=== PATIENT | female | born 1970 | race Caucasian/White ===

== ENCOUNTER → 2017-10-16 | Outpatient (CLI) | payer OTHER ==
--- NOTE | 2017-10-23 08:57 | MM ---
Reason for exam: screening (asymptomatic). Last mammogram was performed 5 years and 7 months ago. History: Patient is postmenopausal. Family history of breast cancer in maternal aunt at age 65 and breast cancer in maternal cousin at age 42. Took hormonal contraceptives for 7 years 5 months beginning at age 34. Physical Findings: A clinical breast exam by your physician is recommended on an annual basis and results should be correlated with mammographic findings. MG 3D Screening Mammo W/Cad Bilateral CC and MLO view(s) were taken. Prior study comparison: March 20, 2012, bilateral digital screening mammo w/CAD. February 23, 2011, bilateral digital screening mammo w/CAD. The breast tissue is heterogeneously dense. This may lower the sensitivity of mammography. There are benign appearing round circumscribed bilateral masses back to 2016. No suspicious abnormality. ASSESSMENT: Benign, BI-RAD 2 RECOMMENDATION: Routine screening mammogram of both breasts in 1 year.
== END | disposition home or self-care (01) ==
LOC: RADMAMWWP 16:52
PROVIDERS: ATTEND Obstetrics & Gynecology
DX: Z12.31 Encounter for screening mammogram for malignant neoplasm of breast (principal)
CPT/HCPCS: 77063; 77067

== ENCOUNTER → 2023-01-10 | Outpatient (CLI) | payer OTHER ==
--- NOTE | 2023-01-10 15:07 | USB ---
Patient History: Menarche at age 9. First Full-Term at age 24. Right ovary removed at age 47. Hysterectomy at age 47. Postmenopausal. Hormonal Contraceptives, starting at age 34 for 7 years, 5 months. Maternal cousin had breast cancer, age 42. Maternal aunt had breast cancer, age 65. Risk Values: Priscilla 5 year model risk: 1.4%. NCI Lifetime model risk: 10.1%. Prior Study Comparison: 02/23/2011 Bilateral Screening Mammogram, [facility]. 03/20/2012 Bilateral Screening Mammogram, [facility]. 10/16/2017 Bilateral Screening Mammogram, [facility]. Findings: The upper outer quadrant of the right breast, the upper inner quadrant of the right breast, the area of palpable concern of the right breast, the axilla of the right breast and the retroareolar of the right breast were scanned. Technique utilized:US breast limited RT Image; Ultrasound imaging of: All 4 quadrants, the retroareolar region and axilla. Hypoechoic lesion at 10:00 1 cm some and nipple appears similar to lesion on prior on 12/06/2021. It should be noted that no location was provided on prior ultrasound. Given stability of at least 2 years is felt to be benign etiology. This may have been present on 2017 exam. Area of palpable abnormality does not demonstrate suspicious mass or finding to correlate. Overall Assessment: Benign, BI-RAD 2 Management: Screening Mammogram of both breasts in 1 year. A clinical breast exam by your physician is recommended on an annual basis and results should be correlated with mammographic findings. This exam should not preclude additional follow-up of suspicious palpable abnormalities. Results were given to the patient verbally at the time of exam. Electronically signed and approved by: Vernon Barron DO
--- NOTE | 2023-01-10 16:04 | P.PN ---
Subjective Progress Note Date: 01/10/23 Lisset is a 52-year-old white female seen in consultation for Paradise Parrish regarding breast pain. She had a bilateral mammogram performed on which was BIRADS 1. She also had limited right breast ultrasound December 06 which revealed a simple cyst at the 10 o'clock position of the right breast measuring 6 x 7 mm in size. She is complaining of pain in her right breast at the 2 oclock region, and pain in her lateral right breast in the axillary area. It is described as tender in nature. It does not spread any place. It lasts several minutes. It is worse with any pressure. She feels thickening of the breast at the 2 o'clock position where it is tender. She has never had any surgery on her breast or breast biopsies. Is not complaining of any nipple discharge or skin changes. She is not complaining of any trauma or infection in the breast. 01-10-23 ultrasound of the right breast 01-10-23 BIRAD 2 She states her breast pain has improved; she is having hot flashes the pain comes and goes with the hot flashes She is not complaining of any new masses or nodules of concern in her breast. Caffeine: coffee daily nicotine: none chocolate: weekly BCP: from 17-40 hormones: none hysterectomy done in 40's left one ovary Family history: mother: thyroid cancer maternal grandmother: pancreatic cancer maternal grandfather: stomach and skin cancer, not melanoma father: prostate cancer, basal cell cancer, SCC cousin maternal: breast cancer maternal aunt: breast cancer Hormonal History: menarche: 11 G4M1P3, age at first : 24, breast fed: yes menopause: hysterectomy in 40's no cancer Surgical History: hysterectomy 1 ovary removed wisdom teeth Medical History: migraine headaches 2 herniated disks in her neck HTN multiple small kidney stones Social History: nicotine: none alcohol: occasional drugs: none - Constitutional Constitutional: Reports sweats - EENT Comment: right eye glucoma Eyes: denies blurred vision, denies pain Ears: bilateral: tinnitus, deny: decreased hearing Ears, nose, mouth and throat: Reports headache, Denies sore throat - Breasts Breasts: bilateral: as per HPI - Cardiovascular Cardiovascular: Denies chest pain, Denies shortness of breath - Respiratory Respiratory: Denies cough - Gastrointestinal Comment: IBS Gastrointestinal: Denies abdominal pain, Denies diarrhea, Denies nausea, Denies vomiting - Genitourinary (Female) Genitourinary: Denies dysuria, Denies hematuria - Menstruation Menstruation: Reports post hysterectomy - Musculoskeletal Musculoskeletal: Reports myalgias - Integumentary Integumentary: Denies pruritus, Denies rash - Neurological Neurological: Denies numbness, Denies weakness - Psychiatric Psychiatric: Denies anxiety, Denies depression - Endocrine Endocrine: Denies fatigue, Denies weight change - Hematologic/Lymphatic Comment: none - Allergic/Immunologic Allergic/Immunologic: Reports seasonal allergies Medications and Allergies Allergies Allergy/AdvReac Type Severity Reaction Status Date / Time Penicillins Allergy Rash/Hives Unverified 10/12/22 15:34 Objective - Constitutional General appearance: Present: cooperative - EENT Eyes: Present: EOMI ENT: Present: hearing grossly normal - Neck Neck: Present: normal ROM - Respiratory Respiratory: bilateral: CTA - Cardiovascular Heart sounds: normal: S1, S2 - Integumentary Integumentary Comment(s): dark nevus lower abdomen Integumentary: Present: normal turgor - Musculoskeletal Musculoskeletal: Present: gait normal - Psychiatric Psychiatric: Present: A&O x's 3, appropriate affect, intact judgment & insight - Additional findings Additional findings: Breast Exam: BRA: 36C inspection: Bilateral grade 2 ptosis Palpation: Right breast: Multi-positional exam fiber glandular changes, no dominant masses or nodules of concern Right axilla: No adenopathy of concern Left breast: Multi-positional exam fibrocystic changes no dominant masses or nodules of concern Left axilla: No adenopathy of concern Assessment and Plan Assessment: Impression: Mastodynia greatest in the right breast improved Fibrocystic breast changes Patient drinks coffee daily Plan: bilateral mammogram in -2023 Patient will attempt lifestyle modifications follow with dermatology Nothing at this time which would warrant interventional biopsy but will await ultrasound at the 12 o'clock position CC: Paradise Parrish
== END | disposition home or self-care (01) ==
LOC: RADUSWWP 14:15
PROVIDERS: ATTEND Surgery
DX: N64.4 Mastodynia (principal); Z78.0 Asymptomatic menopausal state; Z80.3 Family history of malignant neoplasm of breast

== ENCOUNTER → 2023-01-10 | Outpatient (CLI) | payer OTHER ==
[2023-01-10 15:50] VITALS: BP 114/78; PULSE 69; RESP 18; TEMP 97.8
== END ==
LOC: WWCWWP 14:17
PROVIDERS: ATTEND Surgery
DX: Z53.9 Procedure and treatment not carried out, unspecified reason (principal)

== ENCOUNTER → 2023-05-20 | Outpatient (CLI) | payer OTHER ==
--- NOTE | 2023-05-21 20:10 | MM ---
Reason for Exam: Screening (asymptomatic). Last screening mammogram was performed 12 month(s) ago. Patient History: Menarche at age 9. First Full-Term at age 24. Right ovary removed at age 47. Hysterectomy at age 47. Postmenopausal. Hormonal Contraceptives, starting at age 34 for 7 years, 5 months. Maternal cousin had breast cancer, age 42. Maternal aunt had breast cancer, age 65. Risk Values: Priscilla 5 year model risk: 1.4%. NCI Lifetime model risk: 10.1%. Prior Study Comparison: 02/23/2011 Bilateral Screening Mammogram, [facility]. 03/20/2012 Bilateral Screening Mammogram, [facility]. 10/16/2017 Bilateral Screening Mammogram, [facility]. 11/04/2018 Bilateral Screening Mammogram, [facility]. 11/17/2018 Left Diagnostic Ultrasound, [facility]. 05/09/2021 Bilateral Screening Mammogram, [facility]. 12/06/2021 Right US breast RT - 2, [facility]. 05/15/2022 Bilateral Screening Mammogram, [facility]. Tissue Density: The breast tissue is heterogeneously dense. This may lower the sensitivity of mammography. Findings: Analyzed By CAD. Chronic nodularity in the right breast. There is no suspicious group of microcalcifications or new suspicious mass in either breast. Overall Assessment: Benign, BI-RAD 2 Management: Screening Mammogram of both breasts in 1 year. . Patient should continue monthly self-breast exams. A clinical breast exam by your physician is recommended on an annual basis. This exam should not preclude additional follow-up of suspicious palpable abnormalities. Note on Priscilla scores and lifetime risk: 1. A Priscilla score greater than 3% is considered moderate risk. If this is the case, consider specialist referral to assess eligibility for a risk reducing agent. 2. If overall lifetime risk for the development of breast cancer is 20% or higher, the patient may qualify for future screening with alternating mammogram and breast MRI. Electronically signed and approved by: Jose Luis Fitzgerald M.D. Radiologist
== END | disposition home or self-care (01) ==
LOC: RADMAMWWP 10:14
PROVIDERS: ATTEND Surgery
DX: Z12.31 Encounter for screening mammogram for malignant neoplasm of breast (principal); Z80.3 Family history of malignant neoplasm of breast; Z78.0 Asymptomatic menopausal state
CPT/HCPCS: 77063; 77067

== ENCOUNTER → 2023-05-24 | Outpatient (CLI) | payer OTHER ==
--- NOTE | 2023-05-24 12:49 | P.PN ---
Subjective Progress Note Date: 05/24/23 Principal diagnosis: fibrocystic breast changes 01/10/23 Lisset is a 52-year-old white female seen in consultation for Paradise Parrish regarding breast pain. She had a bilateral mammogram performed on which was BIRADS 1. She also had limited right breast ultrasound December 06 which revealed a simple cyst at the 10 o'clock position of the right breast measuring 6 x 7 mm in size. She is complaining of pain in her right breast at the 2 oclock region, and pain in her lateral right breast in the axillary area. It is described as tender in nature. It does not spread any place. It lasts several minutes. It is worse with any pressure. She feels thickening of the breast at the 2 o'clock position where it is tender. She has never had any surgery on her breast or breast biopsies. Is not complaining of any nipple discharge or skin changes. She is not complaining of any trauma or infection in the breast. 01-10-23 ultrasound of the right breast 01-10-23 BIRAD 2 She states her breast pain has improved; she is having hot flashes the pain comes and goes with the hot flashes She is not complaining of any new masses or nodules of concern in her breast. 05-24-23 Bilateral mammogram 05-20-23 BIRAD 2 personally reviewed She is not complaining of any new lumps masses or nodules of concern in either breast, the breast tenderness is only with pressure it has improved; she is drinking decaff coffee Caffeine: coffee daily nicotine: none chocolate: weekly BCP: from 17-40 hormones: none hysterectomy done in 's left one ovary Family history: mother: thyroid cancer maternal grandmother: pancreatic cancer maternal grandfather: stomach and skin cancer, not melanoma father: prostate cancer, basal cell cancer, SCC cousin maternal: breast cancer maternal aunt: breast cancer Hormonal History: menarche: 11 G4M1P3, age at first : 24, breast fed: yes menopause: hysterectomy in 40's no cancer Surgical History: hysterectomy 1 ovary removed wisdom teeth Medical History: migraine headaches 2 herniated disks in her neck HTN multiple small kidney stones Social History: nicotine: none alcohol: occasional drugs: none - Constitutional Constitutional: Reports sweats - EENT Comment: right eye glucoma Eyes: denies blurred vision, denies pain Ears: bilateral: tinnitus, deny: decreased hearing Ears, nose, mouth and throat: Reports headache, Denies sore throat - Breasts Breasts: bilateral: as per HPI - Cardiovascular Cardiovascular: Denies chest pain, Denies shortness of breath - Respiratory Respiratory: Denies cough - Gastrointestinal Comment: IBS Gastrointestinal: Denies abdominal pain, Denies diarrhea, Denies nausea, Denies vomiting - Genitourinary (Female) Genitourinary: Denies dysuria, Denies hematuria - Menstruation Menstruation: Reports post hysterectomy - Musculoskeletal Musculoskeletal: Reports myalgias - Integumentary Integumentary: Denies pruritus, Denies rash - Neurological Neurological: Denies numbness, Denies weakness - Psychiatric Psychiatric: Denies anxiety, Denies depression - Endocrine Endocrine: Denies fatigue, Denies weight change - Hematologic/Lymphatic Comment: none - Allergic/Immunologic Allergic/Immunologic: Reports seasonal allergies Medications and Allergies Allergies Allergy/AdvReac Type Severity Reaction Status Date / Time Penicillins Allergy Rash/Hives Unverified 10/12/22 15:34 Objective - Vital Signs Vital signs: Vital Signs Temp 97.8 F 05/24/23 12:25 Pulse 72 05/24/23 12:25 Resp 16 05/24/23 12:25 BP 127/88 05/24/23 12:25 Pulse Ox 97 05/24/23 12:25 FiO2 Intake & Output 05/23/23 05/24/23 05/24/23 18:59 06:59 18:59 Weight 74.843 kg - Constitutional General appearance: Present: cooperative - EENT Eyes: Present: EOMI ENT: Present: hearing grossly normal - Neck Neck: Present: normal ROM - Respiratory Respiratory: bilateral: CTA - Cardiovascular Heart sounds: normal: S1, S2 - Gastrointestinal General gastrointestinal: Present: soft - Integumentary Integumentary: Present: normal turgor - Musculoskeletal Musculoskeletal: Present: gait normal - Psychiatric Psychiatric: Present: A&O x's 3, appropriate affect, intact judgment & insight - Additional findings Additional findings: Breast Exam: BRA: 36C inspection: Bilateral grade 2 ptosis Palpation: Right breast: Multi-positional exam fibro-glandular changes, no dominant masses or nodules of concern Right axilla: No adenopathy of concern Left breast: Multi-positional exam fibrocystic changes no dominant masses or nodules of concern Left axilla: No adenopathy of concern Assessment and Plan Assessment: Impression: Mastodynia greatest in the right breast improved Fibrocystic breast changes Patient decreased coffee intake Plan: bilateral mammogram in , with appointment at that time Patient will attempt lifestyle modifications follow with dermatology Nothing at this time which would warrant interventional biopsy CC: Paradise Parrish
[2023-05-24 12:52] VITALS: BP 127/88; PULSE 72; RESP 16; TEMP 97.8
== END ==
LOC: WWCWWP 11:40
PROVIDERS: ATTEND Surgery
DX: N60.11 Diffuse cystic mastopathy of right breast (principal); N60.12 Diffuse cystic mastopathy of left breast; N64.4 Mastodynia; I10 Essential (primary) hypertension; Z80.3 Family history of malignant neoplasm of breast; Z87.442 Personal history of urinary calculi; Z88.0 Allergy status to penicillin; Z90.710 Acquired absence of both cervix and uterus; Z90.721 Acquired absence of ovaries, unilateral

== ENCOUNTER 2023-10-04 10:37 | Day surgery (SDC) | payer OTHER ==
[2023-10-01 17:48] VITALS: BMI 31.1
[2023-10-04] MEDS: IV FLUID CONTINUATION 1,000 ML IV ONE (10:49)
[2023-10-04 11:01] VITALS: TEMP 97.3
[2023-10-04] MEDS: LACTATED RINGERS 1,000 ML IV SCH (11:13)
[2023-10-04] MEDS ORDERED: PROPOFOL 10 MG/ML 20 ML VIAL IV ONE (11:32)
--- NOTE | 2023-10-04 11:47 | P.PCN ---
Date of Procedure: 10/04/23 Procedure(s) Performed: BRIEF HISTORY: Patient is a 53-year-old pleasant white female scheduled for an elective colonoscopy as a part of screening for colon cancer. PROCEDURE PERFORMED: Colonoscopy with biopsy. PREOPERATIVE DIAGNOSIS: Screening for colon cancer. IV sedation per Anesthesia. PROCEDURE: After informed consent was obtained, the patient, was brought into the endoscopy unit. IV sedation was administered by Anesthesia under continuous monitoring. Digital rectal examination was normal. Initially the Olympus CF-160 flexible video colonoscope was then inserted in the rectum, gradually advanced into the cecum without any difficulty. Careful examination was performed as the scope was gradually being withdrawn. Ileocecal valve and the appendiceal orifice were visualized and appeared normal. Prep was excellent. Mucosa of the cecum had a 4 mm sessile polyp that was removed by cold biopsy., ascending colon, transverse colon, descending colon, sigmoid colon, and rectum appeared normal. Scattered sigmoid diverticulosis. Retroflexion was performed in the rectum and no lesions were seen. The patient tolerated the procedure well. IMPRESSION: 4 mm sessile cecal polyp status post cold biopsy Scattered sigmoid diverticulosis RECOMMENDATIONS: Findings of this examination were discussed with the patient as well as her family. She was advised to follow-up with the biopsy results. If the biopsy reveals adenoma she can have repeat colonoscopy in 5 years..
[2023-10-04 12:10] VITALS: BP 136/91; PULSE 67; RESP 18
== END 2023-10-04 12:45 | disposition home or self-care (01) ==
LOC: ORWHC2ENDO 10:37
PROVIDERS: ATTEND Internal Medicine Gastroenterology
DX: Z12.11 Encounter for screening for malignant neoplasm of colon (principal); D12.0 Benign neoplasm of cecum; K57.30 Diverticulosis of large intestine without perforation or abscess without bleeding; K21.9 Gastro-esophageal reflux disease without esophagitis; I10 Essential (primary) hypertension; Z88.0 Allergy status to penicillin; Z87.19 Personal history of other diseases of the digestive system; Z79.899 Other long term (current) drug therapy; Z79.51 Long term (current) use of inhaled steroids
CPT/HCPCS: 88305; 45380; J2704

== ENCOUNTER → 2024-05-22 | Outpatient (CLI) | payer OTHER ==
--- NOTE | 2024-05-22 10:49 | MM ---
Reason for Exam: Screening (asymptomatic). Last screening mammogram was performed 12 month(s) ago. Patient History: Menarche at age 9. First Full-Term at age 24. Right ovary removed at age 47. Hysterectomy at age 47. Postmenopausal. Hormonal Contraceptives, starting at age 34 for 7 years, 5 months. Maternal cousin had breast cancer, age 42. Maternal aunt had breast cancer, age 65. Risk Values: Priscilla 5 year model risk: 1.4%. NCI Lifetime model risk: 9.9%. Prior Study Comparison: 05/09/2021 Bilateral Screening Mammogram, [facility]. 05/15/2022 Bilateral Screening Mammogram, [facility]. 05/20/2023 Bilateral MG 3D screening mammo w/cad, [facility]. Tissue Density: The breasts are heterogeneously dense, which may obscure small masses. Findings: Analyzed By CAD. Right breast: There is no suspicious group of microcalcifications or new suspicious mass. Left breast: There is no suspicious group of microcalcifications or new suspicious mass. Overall Assessment: Negative, BI-RAD 1 Management: Screening Mammogram of both breasts in [address] [facility] will attempt to contact patient to return for supplemental views and ultrasound if indicated. Patient should continue monthly self-breast exams. A clinical breast exam by your physician is recommended on an annual basis. This exam should not preclude additional follow-up of suspicious palpable abnormalities. Note on Priscilla scores and lifetime risk: 1. A Priscilla score greater than 3% is considered moderate risk. If this is the case, consider specialist referral to assess eligibility for a risk reducing agent. 2. If overall lifetime risk for the development of breast cancer is 20% or higher, the patient may qualify for future screening with alternating mammogram and breast MRI. [facility], , 05/22/2024 10:46 AM. Electronically signed and approved by: Vernon Barron DO
== END | disposition home or self-care (01) ==
LOC: RADMAMWWP 10:02
PROVIDERS: ATTEND Surgery
DX: Z12.31 Encounter for screening mammogram for malignant neoplasm of breast (principal); R92.333 Mammographic heterogeneous density, bilateral breasts; Z78.0 Asymptomatic menopausal state; Z80.3 Family history of malignant neoplasm of breast
CPT/HCPCS: 77063; 77067

== ENCOUNTER → 2024-05-28 | Outpatient (CLI) | payer OTHER ==
[2024-05-28 12:30] VITALS: BP 120/84; PULSE 91; RESP 16; TEMP 97.8
--- NOTE | 2024-05-28 12:38 | P.PN ---
Subjective Progress Note Date: 05/28/24 Principal diagnosis: breast pain/ Fibrocystic breast disease 05-28-24 Principal diagnosis: fibrocystic breast changes 01/10/23 Lisset is a 52-year-old white female seen in consultation for Paradise Parrish regarding breast pain. She had a bilateral mammogram performed on which was BIRADS 1. She also had limited right breast ultrasound December 06 which revealed a simple cyst at the 10 o'clock position of the right breast measuring 6 x 7 mm in size. She is complaining of pain in her right breast at the 2 oclock region, and pain in her lateral right breast in the axillary area. It is described as tender in nature. It does not spread any place. It lasts several minutes. It is worse with any pressure. She feels thickening of the breast at the 2 o'clock position where it is tender. She has never had any surgery on her breast or breast biopsies. Is not complaining of any nipple discharge or skin changes. She is not complaining of any trauma or infection in the breast. 01-10-23 ultrasound of the right breast 01-10-23 BIRAD 2 She states her breast pain has improved; she is having hot flashes the pain comes and goes with the hot flashes She is not complaining of any new masses or nodules of concern in her breast. 05-24-23 Bilateral mammogram 05-20-23 BIRAD 2 personally reviewed She is not complaining of any new lumps masses or nodules of concern in either breast, the breast tenderness is only with pressure it has improved; she is drinking decaff coffee 05-28-24 bilateral mammogram on 05-22-24 BIRAD 1 She is complaining of some discomfort in the right breast after she started drinking caffeine again, and started exercising. The pain appears to be more musculoskeletal in nature than actual breast discomfort. She is not complaining of any nipple discharge or skin changes. Priscilla 5 year risk 1.4% life time risk: 9.9% Caffeine: coffee daily nicotine: none chocolate: weekly BCP: from 17-40 hormones: none hysterectomy done in 40's left one ovary Family history: mother: thyroid cancer maternal grandmother: pancreatic cancer maternal grandfather: stomach and skin cancer, not melanoma father: prostate cancer, basal cell cancer, SCC cousin maternal: breast cancer maternal aunt: breast cancer Hormonal History: menarche: 11 G4M1P3, age at first : 24, breast fed: yes menopause: hysterectomy in 40's no cancer Surgical History: hysterectomy 1 ovary removed wisdom teeth colonoscopy in September 2023 skin lesion removed Medical History: migraine headaches 2 herniated disks in her neck HTN multiple small kidney stones kidney stones osteopenia Social History: nicotine: none alcohol: occasional drugs: none - Constitutional Constitutional: Reports sweats - EENT Comment: right eye glucoma Eyes: denies blurred vision, denies pain Ears: bilateral: tinnitus, deny: decreased hearing Ears, nose, mouth and throat: Reports headache, Denies sore throat - Breasts Breasts: bilateral: as per HPI - Cardiovascular Cardiovascular: Denies chest pain, Denies shortness of breath - Respiratory Respiratory: Denies cough - Gastrointestinal Comment: IBS Gastrointestinal: Denies abdominal pain, Denies diarrhea, Denies nausea, Denies vomiting - Genitourinary (Female) Genitourinary: Denies dysuria, Denies hematuria - Menstruation Menstruation: Reports post hysterectomy - Musculoskeletal Musculoskeletal: Reports myalgias - Integumentary Integumentary: Denies pruritus, Denies rash - Neurological Neurological: Denies numbness, Denies weakness - Psychiatric Psychiatric: Denies anxiety, Denies depression - Endocrine Endocrine: Denies fatigue, Denies weight change - Hematologic/Lymphatic Comment: none - Allergic/Immunologic Allergic/Immunologic: Reports seasonal allergies Medications and Allergies Allergies Allergy/AdvReac Type Severity Reaction Status Date / Time Penicillins Allergy Rash/Hives Unverified 10/12/22 15:34 Objective - Constitutional General appearance: Present: cooperative - EENT Eyes: Present: EOMI ENT: Present: hearing grossly normal - Neck Neck: Present: normal ROM - Respiratory Respiratory: bilateral: CTA - Cardiovascular Rhythm: regular Heart sounds: normal: S1, S2 - Integumentary Integumentary: Present: normal turgor - Musculoskeletal Musculoskeletal: Present: gait normal - Psychiatric Psychiatric: Present: A&O x's 3, appropriate affect, intact judgment & insight - Additional findings Additional findings: Breast Exam: BRA: 36C inspection: Bilateral grade 2 ptosis Palpation: Right breast: Multi-positional exam fibro-glandular changes, no dominant masses or nodules of concern Right axilla: No adenopathy of concern Left breast: Multi-positional exam fibrocystic changes no dominant masses or nodules of concern Left axilla: No adenopathy of concern Assessment and Plan Assessment: Impression: Mastodynia greatest in the right breast improved/ probable chest wall related Fibrocystic breast changes Patient decreased coffee intake Plan: bilateral mammogram in -2025, with appointment at that time Patient will attempt lifestyle modifications Nothing at this time which would warrant interventional biopsy CC: Paradise Parrish
== END ==
LOC: WWCWWP 11:36
PROVIDERS: ATTEND Surgery
DX: Z12.31 Encounter for screening mammogram for malignant neoplasm of breast (principal); N60.11 Diffuse cystic mastopathy of right breast; N60.12 Diffuse cystic mastopathy of left breast; Z80.3 Family history of malignant neoplasm of breast; Z88.0 Allergy status to penicillin